=== PATIENT | female | born 1940 | race Caucasian/White ===

== ENCOUNTER 2018-10-23 06:39 | Inpatient (IN) | payer OTHER ==
[2018-10-23 07:39] LABS: PLATELET COUNT 150 10^3/uL (150-400)
--- NOTE | 2018-10-23 07:52 | EDPHY ---
HPI/HX/ROS/PE/MDM Narrative: CHIEF COMPLAINT: Unwitnessed fall HPI: The patient is a 78-year-old female with a history of dementia, currently living in an assisted living facility. The patient arrived by EMS prior to start of my shift with concern over unwitnessed fall that occurred sometime overnight. Staff found a skin tear on her right elbow and the patient apparently was complaining of neck pain to them. On my exam, the patient does not remember what happened and denies pain anywhere in her body. She states that the discharge in both eyes has been present for "some time". I am told by the nurse that the patient was apparently supposed to see her doctor later today. REVIEW OF SYSTEMS: Unable to reliably obtain secondary to dementia. PMH: Includes dementia, hypothyroid SOCIAL HISTORY: Lives in assisted living facility. No history of alcohol use. PHYSICAL EXAM: General:Patient is alert, in no acute distress. ENT: Bilateral eye yellow goopy discharge is noted. No significant scleral injection or signs of trauma. Neck: Normal inspection. Full range of motion. Respiratory:No respiratory distress. Breath sounds normal bilaterally. Cardiovascular: Regular rate and rhythm. Strong peripheral pulses. Normal cap refill. Abdomen:The abdomen is nontender to palpation. There are no peritoneal signs. There are normal bowel sounds. Back: Normal to inspection. No tenderness to palpation. Skin: Normal color. No rash. Warm and dry. Extremities: Very small abrasion/skin tear is noted on the right lateral elbow. There is no bony tenderness whatsoever throughout this region and the patient has full range of motion of the right elbow. She is able to lift each leg fully off the bed independently without pain in her pelvis or hip. Neuro: Normal motor function. Normal sensory function. ED Course: On re-evaluation at 8:30 a.m., patient is unable to walk. The nurse is assisting her and she states that she is not having any pain but just feels extremely unsteady. I have ordered a CT of her head and neck. CT head and neck are negative for signs of acute trauma. Other than a mild skin abrasion, the patient has no signs of trauma on exam so I do not think she requires a trauma consult. Given the fact that she remains very unsteady on her feet which appears to be a change for her, we will admit her to the hospital for observation further workup. I spoke with Norma Church at 10:05 a.m.. - Data Points Imaging Results: Imaging Impressions Cervical Spine CT 10/23/18 08:39 Impression: 1. No acute posttraumatic abnormality identified. If there is persistent pain or neurologic deficit, consider MRI and/or flexion and extension views if clinically indicated. 2. Multilevel degenerative change as above, with probable mild to moderate spinal canal narrowing from C4 through C7. 3. Likely benign small pulmonary nodules. Given the upper lobe distribution, follow up unenhanced chest CT is recommended in one year. Findings discussed with Nagi Lim MD on 10/23/2018 at 9:[address] 10/23/18 08:39 Impression: 1. No acute intracranial findings. 2. Diffuse cerebral atrophy with periventricular and subcortical low attenuation consistent with chronic microvascular ischemic gliosis. Findings discussed with Nagi Lim MD 10/23/2018 at 9:30. Laboratory Results: Laboratory Results 10/23/18 07:25 10/23/18 07:25 10/23/18 10/23/18 07:25 07:25 WBC 6.61 10^3/uL 10^3/uL (3.80-9.50) RBC 4.65 10^6/uL 10^6/uL (4.18-5.33) Hgb 14.6 g/dL g/dL (12.6-16.3) Hct 42.4 % % (38.0-47.0) MCV 91.2 fL fL (81.5-99.8) MCH 31.4 pg pg (27.9-34.1) MCHC 34.4 g/dL g/dL (32.4-36.7) RDW 17.5 % H % (11.5-15.2) Plt Count 150 10^3/uL 10^3/uL (150-400) MPV 10.0 fL fL (8.7-11.7) Neut % (Auto) 70.9 % % (39.3-74.2) Lymph % (Auto) 10.9 % L % (15.0-45.0) [place] % (Auto) 16.3 % H % (4.5-13.0) Eos % (Auto) 0.9 % % (0.6-7.6) Baso % (Auto) 0.5 % % (0.3-1.7) Nucleat RBC Rel Count 0.0 % % (0.0-0.2) Absolute Neuts (auto) 4.69 10^3/uL 10^3/uL (1.70-6.50) Absolute Lymphs (auto) 0.72 10^3/uL L 10^3/uL (1.00-3.00) Absolute Monos (auto) 1.08 10^3/uL H 10^3/uL (0.30-0.80) Absolute Eos (auto) 0.06 10^3/uL 10^3/uL (0.03-0.40) Absolute Basos (auto) 0.03 10^3/uL 10^3/uL (0.02-0.10) Absolute Nucleated RBC 0.00 10^3/uL 10^3/uL (0-0.01) Immature Gran % 0.5 % % (0.0-1.1) Immature Gran # 0.03 10^3/uL 10^3/uL (0.00-0.10) Sodium 137 mEq/L mEq/L (135-145) Potassium 3.5 mEq/L mEq/L (3.5-5.2) Chloride 101 mEq/L mEq/L (97-110) Carbon Dioxide 26 mEq/l mEq/l (22-31) Anion Gap 10 mEq/L mEq/L (6-14) BUN 28 mg/dL H mg/dL (7-23) Creatinine 1.0 mg/dL mg/dL (0.6-1.0) Estimated GFR 54 Glucose 85 mg/dL mg/dL (70-100) Calcium 9.3 mg/dL mg/dL (8.5-10.4) General Time Seen by Provider: 10/23/18 06:51 Initial Vital Signs: Initial Vital Signs Temperature (C) 36.6 C 10/23/18 06:44 Heart Rate 93 10/23/18 06:44 Respiratory Rate 16 10/23/18 06:44 Blood Pressure 131/84 H 10/23/18 06:44 O2 Sat (%) 93 10/23/18 06:44 O2 Delivery Mode Room Air Allergies/Adverse Reactions: No Known Allergies Allergy (Unverified 10/23/18 06:43) Home Medications: Medication Instructions Recorded Atorvastatin Calcium 10/23/18 Bupropion HCl [Wellbutrin Xl] 10/23/18 Cyanocobalamin (Vitamin B-12) 10/23/18 [B-12] Divalproex [Depakote] 10/23/18 Donepezil HCl 10/23/18 Folic Acid 10/23/18 LORazepam [Ativan] 10/23/18 Levothyroxine [Synthroid 25 mcg 10/23/18 (*)] Multivitamin [Children's Chewable 10/23/18 Vitamin] Ofloxacin 0.3% [Ocuflox 0.3%] 1 drops OP QID 7 Days opht.btl 10/23/18 Olmesartan Medoxomil [Benicar] 10/23/18 Risperidone 10/23/18 Thiamine HCl [B-1] 10/23/18 Departure - Departure Condition: Fair Referrals: Patient,NotPresent [Unknown] - As per Instructions Prescriptions: Ofloxacin 0.3% [Ocuflox 0.3%] 1 drops OP QID 7 Days opht.btl
[2018-10-23] MEDS ORDERED: ACETAMINOPHEN 325 MG TAB PO PRN (11:44)
[2018-10-23] MEDS ORDERED: ONDANSETRON DISINTEGRATING 4 MG TAB PO PRN (11:44)
[2018-10-23] MEDS ORDERED: ONDANSETRON 4 MG/2 ML VIAL IVP PRN (11:44)
[2018-10-23] MEDS ORDERED: NS 1,000 ML IV SCH (11:45)
--- NOTE | 2018-10-23 13:01 | GHP ---
[f rep st] HISTORY AND PHYSICAL DATE OF ADMISSION: 10/23/2018 CHIEF COMPLAINT: Unwitnessed fall. HISTORY OF PRESENT ILLNESS: The patient is a 78-year-old female with a history of dementia, depression and hypothyroidism, who is currently living at [facility]. She arrived by EMS after concern of an unwitnessed fall that occurred during the night. The staff found a skin tear on her right elbow, and then she was complaining of neck pain. She was unable to tell the emergency room doctor much information when she arrived. In further discussion with her, she tells me she has had approximately 2 falls, 1 approximately a week ago and then again today. She is not clear why she is falling. She thinks possibly she is losing her balance. She does not have any complaints of any type of chest pain, shortness of breath, or lightheadedness. She describes that she got stuck on the floor and could not get up. She is able to tell me the year. She thinks she is living in the [facility]. She is unable to tell me who is the president. She denies any changes in her appetite, weight loss or weight gain. Overall, she said she is feeling fine, and that she describes herself as being a strong, healthy woman. Also, I tried to find further care about the patient because of her dementia. There was no information noted in [place] or [facility]. PAST MEDICAL HISTORY: Hypertension, dementia, hypothyroidism, hyperlipidemia, depression. PAST SURGICAL HISTORY: Facelift. SOCIAL HISTORY: She has a son who lives in the [place] area. She is . She does not smoke. She does not drink alcohol. She lives in assisted living. FAMILY HISTORY: Unobtainable due to her dementia. HOME MEDICATIONS: Thiamine 100 mg daily, multivitamin 1 tab daily, risperidone 1 mg b.i.d., medoxomil 40 mg daily, Ativan 1 mg Saturday through at 21:00 , Synthroid 12.5 mcg daily, folic acid 1 mg daily, Aricept 10 mg p.o. q.h.s., Depakote ER 750 mg twice daily, Wellbutrin 300 mg daily, vitamin B12, 1000 mcg daily, and Lipitor 20 mg p.o. q.h.s. REVIEW OF SYSTEMS: A 10-point review of systems was performed and was negative. It is unclear that the patient is reliable because of her dementia. PHYSICAL EXAM: GENERAL: The patient is a 78-year-old female who appears to be in fair health. VITAL SIGNS: Blood pressure is 112/71, heart rate of 86, respiratory rate of 16, O2 sat on room air 93%, temperature 36.5 Celsius. EYES : Pupils are equal and reactive. She has a significant yellow drainage from both eyes. She has no significant scleral injection. ENT: She has normal ears. Hearing intact. Mucous membranes are dry. NECK: Her trachea is midline. She has no neck pain during my evaluation. CARDIOVASCULAR: She is in a regular rate and rhythm. She has a systolic murmur noted to the left sternal border. She has 2+ pedal pulses. CHEST: Lungs normal respiratory effort. Clear without wheezing, rales, or rhonchi. ABDOMEN: Soft, nontender. SKIN: She has a small skin tear to her right elbow. She has multiple ecchymotic areas on the left middle back area that are about the size of an orange. She also has some ecchymosis noted at the left low back area. NEUROLOGIC: She is alert. She is oriented to herself and to the date, not to the situation or to the president. Her gamer are weak, but equal bilaterally. Her lower extremity strength is equal. Her tongue is midline. PSYCHIATRIC: She appears to have overall normal mood and affect. Difficult to tell judgment , insight, or her memory. DATA REVIEWED: 1. EKG that I evaluated myself shows sinus rhythm with a QTc at 0.50. 2. Cervical spine CT shows no acute posttraumatic abnormality identified. She has multi-degenerative changes with probable mild to moderate spinal canal narrowing from C4 through C7. She has likely a small benign pulmonary nodule. She should get a repeat CT in [address] shows no acute intracranial finding. She has diffuse cerebral atrophy with periventricular and subcortical low attenuation, consistent with chronic microvascular ischemic gliosis. LABORATORY DATA: A CBC shows a white blood cell count of 6.61, hemoglobin 14.6 , hematocrit 42.5, platelet count of 150. Her lymphocyte percent is 10. Her mono percent is 16.3. Chemistry: Sodium is 137, potassium 3.5, chloride of 101 , CO2 of 26. Her BUN is elevated at 28. Her creatinine is 1. Her glucose is 85, and calcium is 9.3. Urinalysis shows 1+ ketones with 4.0 urobilinogen. She has 1+ leukocyte esterase and 5-10 white blood cell count. ASSESSMENT/PLAN: 1. Weakness with unwitnessed falling. Will ask Physical Therapy and Occupational Therapy to evaluate her. She is also on Depakote. Will check a valproic acid level. In addition, will check a TSH. She is on Benicar which may cause some dizziness. 2. Systolic murmur. Will get an echocardiogram for further evaluation. 3. Bilateral conjunctivitis. Will order erythromycin t.i.d. 4. Dehydration with a mildly elevated BUN. Will gently hydrate her overnight and recheck her labs in the morning. 5. Dementia. Resumed Aricept. 6. Depression, on Wellbutrin and possibly on Depakote as a mood stabilizer. 7. Pulmonary nodule. This should be monitored yearly. 8. Deep venous thrombosis prophylaxis, high risk. Will place her on low molecular weight heparin. 9. Pyuria. No complaints of frequency, burning or urgency. 10. Length of stay: She will be made observation status. This can be further evaluated in the morning. I have attempted to contact the patient's son and have been unable to do so. Will update him on the patient's admission when I am able to reach him. /[id number]/MODL MTDD
--- NOTE | 2018-10-23 15:16 | CPEKG ---
Test Reason : OPEN Blood Pressure : / mmHG Vent. Rate : 093 BPM Atrial Rate : 093 BPM P-R Int : 116 ms QRS Dur : 086 ms QT Int : 406 ms P-R-T Axes : 034 036 043 degrees QTc Int : 506 ms Sinus rhythm Prolonged QT interval Confirmed by Nagi Lim ([id number]) on 10/23/2018 3:15:43 PM Referred By: Nagi Lim Confirmed By:Nagi Lim
[2018-10-23] MEDS: ERYTHROMYCIN 0.5% 1 GM OPHT.OINT EACHEYE SCH ×2 (16:19→21:48)
--- NOTE | 2018-10-23 17:44 | ECHO ---
[email or web address] [address] [address] Main: [phone] Echocardiography Examination Transthoracic Name: ROHAN WEISS MR#: [id number] Study Date: 10/23/2018 Study Time: 03:28 PM Date of : 1940 Age: 78 year(s) Height: 165.1 cm (65 in.) Weight: 52.16 kg (115 lb.) BSA: 1.56 m2 Gender: Female Examination: Echo Contrast: Image Quality: Rhythm: Normal sinus rhythm Heart Rate: 85 bpm BP: 112 mmHg/71 mmHg Indication: Fall, Dementia Procedure Staff Referring Physician: Machine Feeder: Gerald Duong RDCS Reading Physician: Laure Perez MD Requesting Provider: Ordering Physician: Norma Church Indication: Fall, Dementia Measurements Chambers AV/MV Label Value Normal Value Label Value Normal Value LVOT Vmax 1.39 m/s (0.7m/s - 1.1m/s) AV PGmax 9 mmHg LVOTd 1.9 cm (1.8cm - 2cm) AV PGmean 5 mmHg LVOT VTI 28.9 cm (18cm - 22cm) AV Vmax 1.47 m/s LVDd, 2D 3.5 cm (3.9cm - 5.3cm) TARA (Vmax) 2.7 cm2 LVDs, 2D 2 cm (2.1cm - 4cm) TARA (VTI) 2.8 cm2 IVSd, 2D 0.9 cm (0.6cm - 1.1cm) MV E Vmax 0.64 m/s LVPWd, 2D 1 cm MV A Vmax 1 m/s LVEF, 2D 76 % (54% - 74%) MV E/A 0.64 LVOT PGmean 4 mmHg MV E/E' lateral 12.9 LVOT Vmean 0.95 m/s MV E/E' septal 16.9 (0.45 - 1.25) Additional Vessels MV E' septal 0.04 m/s Label Value Normal Value MV E' lateral 0.05 m/s AoRoot, MM 2.8 cm (2.2cm - 3.7cm) MV E/E' mean 14.22 MV E' mean 0.04 m/s TV/PV Label Value Normal Value RA Pressure 5 mmHg RVSP 19 mmHg TR Pmax 14 mmHg Patient: ROHAN WEISS Study Date: 10/23/2018 Page 1 of 2 03:28 PM TR Vmax 1.89 m/s PV PGmax 10 mmHg PV Vmax, Caliper 1.57 m/s (0.6m/s - 0.9m/s) Conclusions 1. Technically limited echo. 2. Left ventricle is normal in size and systolic function. No obvious regional wall motion abnormalities. Ejection fraction is approximately 60%. 3. The right ventricle appears normal in size systolic function. 4. No significant valvular disease. 5. Estimated PA systolic pressures are normal. 6. No previous echo Findings Left Ventricle: Off axis views were obtained due to limited windows. Subcostal views were utilitzed.. Left ventricle is normal in size. Normal global systolic left ventricular function. Left ventricle wall thickness is normal. There are no regional wall motion abnormalities. Right Ventricle: Normal size right ventricle. The RV function appears grossly normal. Left Atrium: The left atrium is normal in size. Right Atrium: The right atrium is normal in size. Mitral Valve: Mitral valve appears structurally normal. No significant mitral regurgitation. No mitral valve stenosis. Aortic Valve: Aortic leaflets are normal in appearance and function. No aortic valve regurgitation. There is no aortic stenosis. Aortic leaflets exhibit no calcification. Tricuspid Valve: Tricuspid valve leaflets are normal in appearance and function. No significant tricuspid regurgitation. Right Ventricular systolic pressure is measured at 19 mmHg. Pulmonic Valve: Pulmonic leaflets are normal in appearance and function. Aorta: The aorta is normal. The aortic root size in M-mode measures 2.8 cm. Aorta Measurements AoRoot, MM is 2.8 cm. Pericardium: No pericardial effusion. Exam Details Procedure Ordered: Echo (No Signature Object) Patient: ROHAN WEISS Study Date: 10/23/2018 Page 2 of 2 03:28 PM [id number]
[2018-10-23] MEDS: ATORVASTATIN CALCIUM 20 MG TAB PO SCH (21:47)
[2018-10-23] MEDS: DONEPEZIL HCL 5 MG TAB PO SCH (21:47)
[2018-10-23] MEDS: DIVALPROEX ER 250 MG TAB PO SCH (21:48)
[2018-10-23] MEDS: DIVALPROEX ER 500 MG TAB PO SCH (21:48)
[2018-10-23] MEDS ORDERED: MELATONIN 3 MG TAB PO SCH (22:30)
[2018-10-23] MEDS ORDERED: MELATONIN 3 MG TAB PO ONE (23:45)
[2018-10-24] MEDS: LEVOTHYROXINE 25 MCG TAB PO SCH (06:08)
[2018-10-24] MEDS: DIVALPROEX ER 250 MG TAB PO SCH ×2 (08:59→19:57)
[2018-10-24] MEDS: CYANO/VITAMIN B12 1000 MCG TAB PO SCH (08:59)
[2018-10-24] MEDS: MULTIVITAMINS 1 EACH TAB PO SCH (08:59)
[2018-10-24] MEDS: FOLIC ACID 1 MG TAB PO SCH (08:59)
[2018-10-24] MEDS: buPROPion XL 150 MG TAB PO SCH (08:59)
[2018-10-24] MEDS: THIAMINE HCL 100 MG TAB PO SCH (08:59)
[2018-10-24] MEDS: DIVALPROEX ER 500 MG TAB PO SCH ×2 (08:59→19:56)
[2018-10-24] MEDS: ENOXAPARIN 40 MG/0.4 ML SYR SC SCH (09:06)
[2018-10-24] MEDS: ERYTHROMYCIN 0.5% 1 GM OPHT.OINT EACHEYE SCH ×3 (09:40→20:19)
--- NOTE | 2018-10-24 14:23 | HOSPPROG ---
Hospitalist Progress Note Assessment/Plan: #Weakness: per son, spends more and more time in bed last 2 months after arm fracture -no infectious source, echo stable -PT rec SNF #Dementia: needs outpatient Neurology #Murmur: echo reassuring #BL bacterial conjunctivitis: e-mycin ointment #Depression: home meds #Pyuria: no sxs, will not tx #Pulm nodule: annual imaging #Deconditioning: son (UMESH) would like to keep at [facility], but in Memory Unit and flight risk. CM assisting #Diet: reg #DVT ppx: SCDs Inpatient admission for PT; high-risk for falls and subsequent harm Subjective: does not recall fall. Denies CP, palps or dysuria Objective: Vital Signs Temp Pulse Resp BP Pulse Ox 36.6 C 85 16 129/79 H 92 10/24/18 08:00 10/24/18 08:00 10/24/18 08:00 10/24/18 08:00 10/24/18 08:00 Laboratory Results 10/24/18 04:36 - Time Spent With Patient Time Spent with Patient: greater than 35 minutes Time Spent with Patient: Greater than 35 minutes spent on this patients care, greater than 50% of time spent counseling, educating, and coordinating care regarding the above mentioned plan. - Physical Exam Constitutional: no apparent distress Eyes: other (BL conjunctivitis with purulence) Cardiovascular: regular rate and rhythym, systolic murmur (RUSB) Respiratory: no respiratory distress Gastrointestinal: normoactive bowel sounds Genitourinary: no bladder fullness Skin: warm Musculoskeletal: full muscle strength Neurologic: CN II-XII Intact Psychiatric: poor insight, poor judgement, poor memory ICD10 Worksheet Patient Problems: Problems Problem Status Onset Fall Acute - ICD10 Problem Qualifiers (1) Fall
--- NOTE | 2018-10-24 15:40 | ASMTCMCOM ---
CM Note CM Note Notes: Pt is a 78- year old female patient with a history of dementia, depression and hypothyroidism. Pt came in because she fell. Pt currently lives at [facility] in the Reflections unit. Son is present Rudy [phone]. CM sent referrals into [facility] for PT/OT. Son has requested 24 hour supervision that he is setting up on his own. Pt needs to be transported through [facility] because [facility] does not provide transportation. Plan: [facility] Unit with [facility] PT/OT Date Signed: 10/24/2018 03:39 PM Electronically Signed By:Maite Figueroa
[2018-10-24] MEDS: DONEPEZIL HCL 5 MG TAB PO SCH (19:56)
[2018-10-24] MEDS: ATORVASTATIN CALCIUM 20 MG TAB PO SCH (19:56)
[2018-10-24] MEDS ORDERED: MELATONIN 3 MG TAB PO SCH (21:00)
[2018-10-25 07:58] VITALS: BP 135/100
[2018-10-25] MEDS: MULTIVITAMINS 1 EACH TAB PO SCH (09:56)
[2018-10-25] MEDS: LEVOTHYROXINE 25 MCG TAB PO SCH (09:56)
[2018-10-25] MEDS: DIVALPROEX ER 500 MG TAB PO SCH (09:56)
[2018-10-25] MEDS: DIVALPROEX ER 250 MG TAB PO SCH (09:56)
[2018-10-25] MEDS: buPROPion XL 150 MG TAB PO SCH (09:56)
[2018-10-25] MEDS: CYANO/VITAMIN B12 1000 MCG TAB PO SCH (09:57)
[2018-10-25] MEDS: ENOXAPARIN 40 MG/0.4 ML SYR SC SCH (09:57)
[2018-10-25] MEDS: ERYTHROMYCIN 0.5% 1 GM OPHT.OINT EACHEYE SCH (09:57)
[2018-10-25] MEDS: FOLIC ACID 1 MG TAB PO SCH (10:06)
[2018-10-25] MEDS: THIAMINE HCL 100 MG TAB PO SCH (10:06)
--- NOTE | 2018-10-25 10:54 | PDIAF ---
- Diagnosis Diagnosis: falls Code Status: Full Code - Medication Management Discharge Medications: electronically signed and located in the Home Medication List. - Orders Services needed: Registered Nurse, Master Hot Header Operator, Physical Therapy, Occupational Therapy Diet Recommendation: no restrictions on diet Diet Texture: Regular Texture Diet Additional Instructions: Recommend Neurologist and Psychiatry evaluation Will have referral placed for Palliative Care - Follow Up Care Current Providers and Referrals: Patient,NotPresent [Unknown] - As per Instructions
--- NOTE | 2018-10-25 11:32 | GDS ---
[f rep st] DISCHARGE SUMMARY DISCHARGE DIAGNOSES: 1. Progressive dementia. 2. Hypertension. 3. Hypothyroid. 4. Hyperlipidemia. 5. Depression. 6. Heart murmur. 7. Bilateral bacterial conjunctivitis. 8. Pyuria. 9. Pulmonary nodule. HISTORY OF PRESENT ILLNESS: A 78-year-old female with dementia, hyperlipidemia, and hypothyroidism t ransferred for witnessed fall at [facility]. They found a skin tear on her right elbow and she was complaining of neck pain. She cannot recall the events surrounding the fall. She denies chest pain , palpitations, dizziness, shortness of breath to me. Per her son, who is MD/POLizzie, she broke her arm in May and has declined since then. She spends mo re time in bed and appears more depressed. HOSPITAL COURSE BY PROBLEM: 1. Falls. These appear mechanical. She denies prodromal symptoms. Echo was reassuring without valv ular heart disease or wall motion abnormalities. There was mild pyuria on the UA. She denies any sy mptoms but is unclear given dementia if this is accurate. We will check a urine culture prior to dis charge. If positive, I will call [facility] with results. She has been afebrile without leukocyto sis though. 2. She will be discharged to [facility] with PT, OT, and 24-hour around the clock [facility] by son. 3. Dementia. This appears to be progressing since fall. Patient is more isolated and staying in d. I recommend outpatient Neurology Psychology evaluation. 4. Murmur. Echo was reassuring. 5. Bilateral bacterial conjunctivitis. Continue E-Mycin ointment. 6. Depression. Home medications. 7. Pyuria. Again, culture sent. 8. Pulmonary nodule. Annual imaging. DISPOSITION: Patient is planned for discharge to [facility] with 24-hour care, PT/OT. NEW MEDICATIONS: E-mycin ointment. GOALS: Had a lengthy conversation with son. Recommend palliative care and he has agreed to this. Tatyana real will arrange as an outpatient. PHYSICAL EXAMINATION: VITAL SIGNS: Today, temperature 36.6 blood pressure 130s/92, heart rate in 70 s, respirations 16, 94% on room air. GENERAL: She is no acute distress. HEENT: Bilateral conjunctivi tis, improved. Still mild purulence. CV: Regular. Positive murmur right upper sternal border. JADE NGS: Clear. ABDOMEN: Soft, nontender. MUSCULOSKELETAL: She is moving all 4 extremities. NEURO: 2 through 12 intact. PSYCH: She is alert, but poor insight, poor judgment FOLLOWUP: 1. Neurology evaluation. 2. Psychiatry. Time spent on discharge greater 30 minutes at bedside counseling son on palliative care, followup geo n and coordinating with Case Management. /[id number]/MODL
--- NOTE | 2018-10-25 11:38 | ASMTLACE ---
LACE Length of stay for Answers: 1 day current admission Acuity / Level of Answers: Yes Care: Did the patient have an inpatient admission? Comorbidities - select Answers: Dementia all that apply Other Notes: Hypothyroid; HTN # of Emergency department Answers: 1-2 visits in the last 6 months Social determinants Answers: Mental health diagnosis (anxiety, depression, pers onality disorders, etc.) Score: 12 Date Signed: 10/25/2018 11:38 AM Electronically Signed By:MIKE Chapa
--- NOTE | 2018-10-25 11:49 | ASDISCHSUM ---
Discharge Information Plan Status:Home with Home Health Medically Cleared to Leave:10/25/2018 Discharge Date:10/25/2018 CM D/C Disposition:Home Health Service ADT D/C Disposition:Longterm Facility Projected Discharge Date:10/25/2018 11:00 AM Transportation at D/C:Wheelchair Van Discharge Delay Reason: Follow-Up Date:10/25/2018 11:00 AM Discharge Slot: Final Diagnosis: Placement Information Referral Type:*Home Health Care Services Referral ID:[id number] Provider Name:[facility] (formerly [facility]) Address 1:[address] [address] Address 2: City:[place] Selection Factors: State:[place] Referral Type:Assisted Living Residence Referral ID:[id number] Provider Name:[facility] Address 1:[address] Phone Number: Address 2: Fax Number: City:[place] Selection Factors: State:[place] Referral Type:Palliative Care Referral ID:[id number] Provider Name:[facility] Address 1:[address] Phone Number: Address 2: Fax Number: [facility]:[place] Selection Factors: State:[place] Patient Contact Information Contact Name:TOMÁS Relationship:Thee Address:[address] [place] [address] Work Phone: City:[facility] Phone: [facility]/Zip Code:[place] [address] Email: Financial Information Financial Class:Medicare Primary Plan Desc:MEDICARE OUTPATIENT Primary Plan Number:[id number] Secondary Plan Desc:SAUD Secondary Plan Number:[id number] Assessment Information LACE LACE Length of stay for Answers: 1 day current admission Acuity / Level of Answers: Yes Care: Did the patient have an inpatient admission? Comorbidities - select Answers: Dementia all that apply Other Notes: Hypothyroid; HTN # of Emergency department Answers: 1-2 visits in the last 6 months Social determinants Answers: Mental health diagnosis (anxiety, depression, pers onality disorders, etc.) Score: 12 Date Signed: 10/25/2018 11:38 AM Electronically Signed By:MIKE Chapa [facility] Progress Note CM Note CM Note Notes: Pt is a 78- year old female patient with a history of dementia, depression and hypothyroidism. Pt came in because she fell. Pt currently lives at [facility] in the Reflections unit. Son is present Rudy [phone]. sent referrals into [facility] for PT/OT. Son has requested 24 hour supervision that he is setting up on his own. Pt needs to be transported through [facility] because [facility] does not provide transportation. Plan: [facility] Reflections Unit with [facility] PT/OT Date Signed: 10/24/2018 03:39 PM Electronically Signed By:Maite Figueroa Intervention Information Intervention Type:DAMON-Not Delivered Date of Service:10/24/2018 01:57 PM Patient Type:Observation Staff Member:Emily Mccormack Hours: Discipline: Severity: Comment:
--- NOTE | 2018-10-25 11:55 | PDMN ---
Medical Necessity Medical necessity: Change to IP, as of 10/24/18, per MD & MCG CG-GDC General Discharge Criteria; los >2 mn for ongoing management of weakness s/p fall; pt high risk for falls & subsequent harm; requiring therapies & CM consult for dc planning; hx dementia
== END 2018-10-25 12:34 | DRG 948 ==
LOC: F3E 10:47 → OBSVTOIN 10-24 14:23
PROVIDERS: ADMIT Student in an Organized Health Care Education/Training Program; ATTEND Student in an Organized Health Care Education/Training Program
DX: R53.1 Weakness (principal); Z91.81 History of falling; F03.90 Unspecified dementia, unspecified severity, without behavioral disturbance, psychotic disturbance, mood disturbance, and anxiety; R01.1 Cardiac murmur, unspecified; H10.9 Unspecified conjunctivitis; F32.9 Major depressive disorder, single episode, unspecified; E03.9 Hypothyroidism, unspecified; I10 Essential (primary) hypertension; R91.1 Solitary pulmonary nodule
CPT/HCPCS: 97161-GP; 97165-GO; G0378; J1650